=== PATIENT | female | born 1945 | race Hispanic/Latino ===

== ENCOUNTER 2024-09-28 10:41 | Inpatient (IN) | payer OTHER ==
[2024-09-28 11:38] LABS: Absolute Basophils 0.1 K/uL (0-0.5); Absolute Eosinophils 0.3 K/uL (0-0.5); Absolute Lymphocytes (CBC) 1.1 K/uL (0.7-4.9); Absolute Monocytes 0.7 K/uL (0.1-1.3); Absolute Neutrophil 7.3 K/uL (1.8-8.0); Eosinophils % 3.6 % (0-4.4); Hematocrit 34.3 % (36.0-45.0); Lymphocytes % 11.4 % (15.3-44.8); MCH 30.1 pg (27.0-35.0); MCV 93.9 fL (80-100); MPV 10.1 fL (7.6-11.3); Monocytes % 7.7 % (3.3-12.3); Neutrophils % 76.3 % (41.7-73.7); Platelets 172 thou/uL (152-406); RBC Red Blood Cell Count 3.65 M/uL (3.86-4.86); Red Cell Distribution Width 14.8 % (12.1-15.2)
[2024-09-28 11:41] LABS: Protime INR 1.07
--- NOTE | 2024-09-28 11:54 | RAD REPORT ---
EXAM: Chest Single View HISTORY: Cough;COPD COMPARISON: None. FINDINGS: LUNGS/PLEURA: Pulmonary vascular congestion. No consolidative airspace disease. MEDIASTINUM: The mediastinal silhouette is within normal limits. CARDIAC: Cardiomegaly. UPPER ABDOMEN: No significant abnormality. BONES: No acute fracture. LINES/TUBES/OTHER: N/A IMPRESSION: Pulmonary vascular congestion. No eleanor pulmonary edema or consolidative airspace disease.
[2024-09-28 11:55] LABS: Albumin 3.1 g/dL (3.4-5.0); Albumin/Globulin Ratio 0.9 (1.1-1.8); Alkaline Phosphatase 64 U/L (45-117); Anion Gap 5.8 mEq/L (5.0-15.0); BUN Blood Urea Nitrogen 17 mg/dL (7-18); Bicarbonate 28 mEq/L (21-32); Bilirubin Total 0.3 mg/dL (0.2-1.0); Globulin 3.5 g/dL (2.3-3.5); Glomerular Filtration Rate 74 ml/min (=/>90); Glucose Level 172 mg/dL (74-106); Lipase 16 U/L (13-75); Magnesium 2.2 mg/dL (1.6-2.4); NT PRO-BNP 1714 pg/mL (<450); Potassium 3.8 mEq/L (3.5-5.1); Protein, Total 6.6 g/dL (6.4-8.2); Sodium Level 140 mEq/L (136-145); Troponin High Sensitivity 49.9 pg/mL (<58.9)
[2024-09-28 11:56] LABS: ALT/SGPT < 14 U/L (13-56); AST/SGOT < 10 U/L (15-37); Bilirubin Direct < 0.2 mg/dL (0-0.2); Bilirubin Indirect, Calculated 0.1 mg/dL (0.2-0.8)
--- NOTE | 2024-09-28 12:12 | ER ---
Nurse's Notes [facility] Name: Candelaria Chavis Age: 79 yrs Sex: Female : 1945 Arrival Date: 09/28/2024 Time: 10:41 Bed 3 Private MD: Diagnosis: Dyspnea;Hypoxemia;Combined systolic (congestive) and diastolic (congestive) heart failure Presentation: 09/28 10:43 Chief complaint: EMS states: Pt from [facility], staff called EMS for high BP and low ph Spo2, initial BP 200/100s, gave morning BP meds, room air Spo2 88% for EMS, improved to 96% on NC, pt has no complaints, denies SOB. Coronavirus screen: Vaccine status: Patient reports receiving the 2nd dose of the covid vaccine. Ebola Screen: No symptoms or risks identified at this time. Initial Sepsis Screen: Does the patient meet any 2 criteria? No. Patient's initial sepsis screen is negative. Does the patient have a suspected source of infection? No. Patient's initial sepsis screen is negative. Risk Assessment: Do you want to hurt yourself or someone else? Patient reports no desire to harm self or others. Onset of symptoms was September 28, 2024. 10:43 Method Of Arrival: EMS: [facility] ph 10:43 Acuity: LIANE 3 ph Triage Assessment: 10:46 General: Appears in no apparent distress. comfortable, well groomed, Behavior is calm, ph cooperative. Pain: Denies pain. Neuro: Level of Consciousness is awake, alert, obeys commands, Oriented to person, place. Cardiovascular: Capillary refill < 3 seconds in bilateral fingers Patient's skin is warm and dry. Respiratory: Airway is patent Respiratory effort is even, unlabored, Respiratory pattern is regular, symmetrical, Onset: The symptoms/episode began/occurred this morning, the patient has mild shortness of breath. Historical: - Allergies: 10:45 No Known Allergies; ph - PMHx: 10:45 Hypertensive disorder; Dementia; Alzheimer's disease; Depressive disorder; ph - Immunization history:: Adult Immunizations unknown. - Infectious Disease History:: Denies. - Social history:: Smoking status: unknown. Screenin:26 [facility] ED Fall Risk Assessment (Adult) History of falling in the last 3 months, ph including since admission No falls in past 3 months (0 pts) Confusion or Disorientation Yes (5 pts) Intoxicated or Sedated No (0 pts) Impaired Gait No (0 pts) Mobility Assist Device Used Yes (1 pt) Altered Elimination No (0 pt) Score/Fall Risk Level 3 or more points = High Risk Oriented to surroundings, Maintained a safe environment, Hourly rounding (assess needs \T\ fall precautionary measures) done, Used ambulatory aids as needed (educated on \T\ assisted with). Abuse screen: Denies threats or abuse. Denies injuries from another. Nutritional screening: No deficits noted. Tuberculosis screening: No symptoms or risk factors identified. Assessment: 11:00 General: SEE TRIAGE ASSESSMENT. ph 12:00 Reassessment: Patient appears in no apparent distress at this time. Patient and/or ph family updated on plan of care and expected duration. Pain level reassessed. 13:00 Reassessment: Patient appears in no apparent distress at this time. Patient and/or ph family updated on plan of care and expected duration. Pain level reassessed. 13:28 Reassessment: Report faxed to second floor, called charge nurse phone and desk, no ph answer. Vital Signs: 10:43 BP 177 / 62; Pulse 73; Resp 18; Temp 98.6(O); Pulse Ox 88% on R/A; ph 10:47 Pulse Ox 93% on 2 lpm NC; ph 12:00 BP 169 / 76; Pulse 77; Resp 18; Pulse Ox 94% on 2 lpm NC; ph 13:03 BP 179 / 70; Pulse 71; Resp 18; Pulse Ox 95% on 2 lpm NC; ph ED Course: 10:41 Patient arrived in ED. ph 10:42 Cheikh Rodriguez MD is Attending Physician. stephan 10:45 Triage completed. ph 10:47 Arm band placed on Patient placed in an exam room, on a stretcher, on oxygen, on pulse ph oximetry. 11:00 Patient has correct armband on for positive identification. Placed in gown. Bed in low ph position. Call light in reach. Side rails up X2. Client placed on continuous cardiac and pulse oximetry monitoring. NIBP monitoring applied. massage therapist on. 11:10 Initial lab(s) drawn, by me, sent to lab. First set of blood cultures drawn by me. aa5 11:15 Parker, Apurva, RN is Primary Nurse. ph 11:20 Second set of blood cultures drawn by me. aa5 11:24 Inserted saline lock: 20 gauge in right forearm, using aseptic technique. Flushed with aa5 10 mL NS. 11:39 XRAY Chest (1 view) In Process Unspecified. EDMS 12:11 Boni Ulloa MD is Hospitalizing Provider. stephan 12:11 Colton Ulloa MD is Hospitalizing Provider. stephan 12:46 Warm blanket given. Verbal reassurance given. am7 13:28 No provider procedures requiring assistance completed. Patient admitted, IV remains in ph place. Administered Medications: 12:06 Not Given (Duplicate Order): ns 0.9% 1000 ml IV at 125 ml/hr once stephan 12:51 Drug: Potassium PO Effervescent Tablet 25 mEq PO once; dissolve in 4 ounces of water or ph juice Route: PO; 13:29 Follow up: Response: No adverse reaction ph 12:52 Drug: Furosemide IVP 20 mg IVP once; give over 2 minutes Route: IVP; Site: right ph forearm; 13:29 Follow up: Response: No adverse reaction ph Medication: 13:27 VIS not applicable for this client. ph Outcome: 12:11 Decision to Hospitalize by Provider. stephan 14:25 Patient left the ED. iw Signatures: Dispatcher [employer] Cheikh Mckenzie MD MD cha Williams, Irene, RN RN Mikaela Tirado RN RN aaApurva Rod RN RN Shellie Trinidad am7
--- NOTE | 2024-09-28 12:12 | EDPHYS ---
Physician Documentation [facility] Name: Candelaria Chavis Age: 79 yrs Sex: Female : 1945 Arrival Date: 09/28/2024 Time: 10:41 Bed 3 Private MD: ED Physician Cheikh Rodriguez HPI: 09/28 10:57 This 79 yrs old Female presents to ER via EMS with complaints of Breathing stephan Difficulty - low o2. 10:57 The patient has shortness of breath at rest, with light activity. Onset: The stephan symptoms/episode began/occurred 2 day(s) ago. Duration: The symptoms are continuous, and are steadily getting worse. The patient's shortness of breath has no apparent modifying factors, is aggravated by nothing, is alleviated by nothing. Associated signs and symptoms: The patient has no apparent associated signs or symptoms. Severity of symptoms: At their worst the symptoms were moderate in the emergency department the symptoms have resolved. The patient has not experienced similar symptoms in the past. Historical: - Allergies: 10:45 No Known Allergies; ph - PMHx: 10:45 Hypertensive disorder; Dementia; Alzheimer's disease; Depressive disorder; ph - Immunization history:: Adult Immunizations unknown. - Infectious Disease History:: Denies. - Social history:: Smoking status: unknown. ROS: 10:58 Constitutional: Negative for fever, chills, and weight loss, Eyes: Negative for injury, stephan pain, redness, and discharge, ENT: Negative for injury, pain, and discharge, Neck: Negative for injury, pain, and swelling, Cardiovascular: Negative for chest pain, palpitations, and edema, Abdomen/GI: Negative for abdominal pain, nausea, vomiting, diarrhea, and constipation, Back: Negative for injury and pain, : Negative for injury, bleeding, discharge, and swelling, MS/Extremity: Negative for injury and deformity, Skin: Negative for injury, rash, and discoloration, Neuro: Negative for headache, weakness, numbness, tingling, and seizure, Psych: Negative for depression, anxiety, suicide ideation, homicidal ideation, and hallucinations, Allergy/Immunology: Negative for hives, rash, and allergies, Endocrine: Negative for neck swelling, polydipsia, polyuria, polyphagia, and marked weight changes, 10:58 Respiratory: Positive for cough, shortness of breath, Exam: 10:58 Constitutional: This is a well developed, well nourished patient who is awake, alert, stephan and in no acute distress. Head/Face: Normocephalic, atraumatic. Eyes: Pupils equal round and reactive to light, extra-ocular motions intact. Lids and lashes normal. Conjunctiva and sclera are non-icteric and not injected. Cornea within normal limits. Periorbital areas with no swelling, redness, or edema. ENT: Nares patent. No nasal discharge, no septal abnormalities noted. Tympanic membranes are normal and external auditory canals are clear. Oropharynx with no redness, swelling, or masses, exudates, or evidence of obstruction, uvula midline. Mucous membranes moist. Neck: Trachea midline, no thyromegaly or masses palpated, and no cervical lymphadenopathy. Supple, full range of motion without nuchal rigidity, or vertebral point tenderness. No Meningismus. Chest/axilla: Normal chest wall appearance and motion. Nontender with no deformity. No lesions are appreciated. Cardiovascular: Regular rate and rhythm with a normal S1 and S2. No gallops, murmurs, or rubs. Normal PMI, no JVD. No pulse deficits. Respiratory: Lungs have equal breath sounds bilaterally, clear to auscultation and percussion. No rales, rhonchi or wheezes noted. No increased work of breathing, no retractions or nasal flaring. Abdomen/GI: Soft, non-tender, with normal bowel sounds. No distension or tympany. No guarding or rebound. No evidence of tenderness throughout. Back: No spinal tenderness. No costovertebral tenderness. Full range of motion. Female : Normal external genitalia. Skin: Warm, dry with normal turgor. Normal color with no rashes, no lesions, and no evidence of cellulitis. MS/ Extremity: Pulses equal, no cyanosis. Neurovascular intact. Full, normal range of motion., bilateral aka Neuro: Awake and alert, GCS 15, oriented to person, place, time, and situation. Cranial nerves II-XII grossly intact. Motor strength 5/5 in all extremities. Sensory grossly intact. Cerebellar exam normal. Normal gait. Psych: Awake, alert, with orientation to person, place and time. Behavior, mood, and affect are within normal limits. 10:58 Cardiovascular: Exam negative for acute changes, arrhythmia, bradycardia, edema, gallop, JVD, murmur, 10:58 Respiratory: Exam negative for acute changes, 10:58 Musculoskeletal/extremity: DVT Exam: No signs of deep vein thrombosis. no pain, no swelling, no tenderness, negative Homans' sign noted on exam, no appreciated bluish discoloration, no erythema, no increased warmth, Vital Signs: 10:43 BP 177 / 62; Pulse 73; Resp 18; Temp 98.6(O); Pulse Ox 88% on R/A; ph 10:47 Pulse Ox 93% on 2 lpm NC; ph 12:00 BP 169 / 76; Pulse 77; Resp 18; Pulse Ox 94% on 2 lpm NC; ph 13:03 BP 179 / 70; Pulse 71; Resp 18; Pulse Ox 95% on 2 lpm NC; ph MDM: 10:42 Medical Screening Exam initiated stephan 10:59 Differential diagnosis: Anemia asthma, Bronchitis CHF exacerbation, Chronic Obstructive stephan Pulmonary Disease Myocardial Infarction pneumonia, Pneumothorax Psychogenic pulmonary edema, Pulmonary Embolism reactive airway disease, Sepsis Unstable Angina. Antibiotic administration: Not indicated. Immunization status: Pneumococcal vaccine: within last 5 years. Influenza vaccine: within last 5 years. Data reviewed: vital signs, nurses notes, lab test result(s), EKG, radiologic studies, plain films. Consideration of Admission/Observation Escalation of care including admission/observation considered. I considered the following discharge prescriptions or medication management in the emergency department Medications were administered in the Emergency Department. See MAR. Independent interpretation of the following test(s) in the Emergency Department EKG: See my EKG interpretation above. Test considered but Not performed: Ultrasound no 2 d echo. 09/28 10:53 Order name: Basic Metabolic Panel; Complete Time: 12:05 [facility] 09/28 10:53 Order name: CBC with Diff; Complete Time: 12:05 [facility] 09/28 10:53 Order name: LFT's; Complete Time: 12:05 [facility] 09/28 10:53 Order name: Magnesium; Complete Time: 12:05 [facility] 09/28 10:53 Order name: NT PRO-BNP; Complete Time: 12:05 [facility] 09/28 10:53 Order name: PT-INR; Complete Time: 12:05 stephan 09/28 10:53 Order name: Troponin HS; Complete Time: 12:05 [facility] 09/28 10:53 Order name: Lipase; Complete Time: 12:05 [facility] 09/28 10:53 Order name: Blood Culture Adult (2) [facility] 09/28 10:53 Order name: Flu; Complete Time: 12:05 [facility] 09/28 10:53 Order name: Urinalysis w/ reflexes [facility] 09/28 12:49 Order name: Respiratory Syncytial Virus Ag EDMS 09/28 12:49 Order name: SARS-COV-2 Antigen Rapid EDMS 09/28 12:49 Order name: Basic Metabolic Panel EDMS 09/28 12:49 Order name: Basic Metabolic Panel EDMS 09/28 12:49 Order name: Basic Metabolic Panel EDMS 09/28 12:49 Order name: Basic Metabolic Panel EDMS 09/28 12:49 Order name: Basic Metabolic Panel EDMS 09/28 12:49 Order name: Basic Metabolic Panel EDMS 09/28 12:49 Order name: Basic Metabolic Panel EDMS 09/28 12:49 Order name: Basic Metabolic Panel EDMS 09/28 12:49 Order name: CBC with Automated Diff EDMS 09/28 12:49 Order name: CBC with Automated Diff EDMS 09/28 12:49 Order name: CBC with Automated Diff EDMS 09/28 12:49 Order name: CBC with Automated Diff EDMS 09/28 12:49 Order name: CBC with Automated Diff EDMS 09/28 12:49 Order name: CBC with Automated Diff EDMS 09/28 12:49 Order name: CBC with Automated Diff EDMS 09/28 12:49 Order name: CBC with Automated Diff EDMS 09/28 12:49 Order name: Magnesium EDMS 09/28 12:49 Order name: Magnesium EDMS 09/28 12:49 Order name: Magnesium EDMS 09/28 12:49 Order name: Magnesium EDMS 09/28 12:49 Order name: Magnesium EDMS 09/28 12:49 Order name: Magnesium EDMS 09/28 12:49 Order name: Magnesium EDMS 09/28 12:49 Order name: Magnesium EDMS 09/28 12:49 Order name: Phosphorus EDMS 09/28 12:49 Order name: Phosphorus EDMS 09/28 12:49 Order name: Phosphorus EDMS 09/28 12:49 Order name: Phosphorus EDMS 09/28 12:49 Order name: Phosphorus EDMS 09/28 12:49 Order name: Phosphorus EDMS 09/28 12:49 Order name: Phosphorus EDMS 09/28 12:49 Order name: Phosphorus EDMS 09/28 12:49 Order name: Troponin High Sensitivity [facility] 09/28 12:49 Order name: Troponin High Sensitivity EDMS 09/28 12:49 Order name: Troponin High Sensitivity [facility] 09/28 13:08 Order name: Procalcitonin [facility] 09/28 10:53 Order name: XRAY Chest (1 view); Complete Time: 12:05 [facility] 09/28 10:53 Order name: EKG; Complete Time: 10:54 [facility] 09/28 10:53 Order name: Cardiac monitoring; Complete Time: 11:14 [facility] 09/28 10:53 Order name: EKG - Nurse/Tech; Complete Time: 11:14 [facility] 09/28 10:53 Order name: IV Saline Lock; Complete Time: 11:14 [facility] 09/28 10:53 Order name: Labs collected and sent; Complete Time: 11:14 [facility] 09/28 10:53 Order name: O2 Per Protocol; Complete Time: 11:14 [facility] 09/28 10:53 Order name: O2 Sat Monitoring; Complete Time: 11:14 stephan Administered Medications: 12:06 Not Given (Duplicate Order): ns 0.9% 1000 ml IV at 125 ml/hr once stephan 12:51 Drug: Potassium PO Effervescent Tablet 25 mEq PO once; dissolve in 4 ounces of water or ph juice Route: PO; 13:29 Follow up: Response: No adverse reaction ph 12:52 Drug: Furosemide IVP 20 mg IVP once; give over 2 minutes Route: IVP; Site: right ph forearm; 13:29 Follow up: Response: No adverse reaction ph Disposition Summary: 09/28/24 12:11 Hospitalization Ordered Notes: Hospitalization Status: Observation stephan Provider: Colton Ulloa cha Location: Telemetry/MedSurg (observation) stephan Condition: Fair stephan Problem: new stephan Symptoms: have improved stephan Bed/Room Type: Standard stephan Room Assignment: 204(09/28/24 13:17) eb Diagnosis - Dyspnea stephan - Hypoxemia stephan - Combined systolic (congestive) and diastolic (congestive) heart failure stephan Forms: - Medication Reconciliation Form stephan - SBAR form stephan - Leadership Thank You Letter stephan Signatures: Dispatcher [employer] Cheikh Mckenzie MD MD cha Hall, Patricia, RN RN Natalia Allen Corrections: (The following items were deleted from the chart) 10:54 10:54 BASIC METABOLIC PANEL+C.LAB.BRZ ordered. EDMS EDMS 10:54 10:54 CBC+H.LAB.BRZ ordered. EDMS EDMS 10:54 10:54 HEPATIC FUNCTION+C.LAB.BRZ ordered. EDMS EDMS 10:54 10:54 MAGNESIUM+C.LAB.BRZ ordered. EDMS EDMS 10:54 10:54 PROBNP+C.LAB.BRZ ordered. EDMS EDMS 10:54 10:54 PROTIME (+INR)+COAG.LAB.BRZ ordered. EDMS EDMS 10:54 10:54 Troponin High Sensitivity+C.LAB.BRZ ordered. EDMS EDMS 10:54 10:54 LIPASE+C.LAB.BRZ ordered. EDMS EDMS 10:54 10:54 BLOOD CULTURE*+BA.LAB.BRZ ordered. EDMS EDMS 10:54 10:54 Influenza Screen (A \T\ B)+BA.LAB.BRZ ordered. EDMS EDMS 10:54 10:54 Urinalysis+U.LAB.BRZ ordered. EDMS EDMS 12:57 12:11 [facility] eb 13:17 12:57 403 eb eb
[2024-09-28] MEDS ORDERED: FUROSEMIDE 20 MG/ 2ML VIAL ONE (12:25)
[2024-09-28] MEDS ORDERED: POTASSIUM 25 MEQ EFFERV TAB ONE (12:25)
--- NOTE | 2024-09-28 12:56 | P.HP ---
Certification for Inpatient Patient admitted to: Inpatient With expected LOS: <2 Midnights Practitioner: I am a practitioner with admitting privileges, knowledge of patient current condition, hospital course, and medical plan of care. Services: Services provided to patient in accordance with Admission requirements found in Title 42 Section 412.3 of the Code of Federal Regulations Patient History Date of Service: 09/28/24 Reason for admission: Acute hypoxic respiratory failure 2/2 upper respiratoy infection History of Present Illness: Candelaria Chavis is a 79 year old female with Pmhx Alzheimer's, hypertension, dementia, major depressive disorder who presents to the ED with decreased oxygenation 87% on room air requiring 2 L nasal cannula. Candelaria reports congestion and nonproductive cough. She reports her chest feels full and she is trying to cough to clear it. Chest x-ray reports "Pulmonary vascular congestion. No eleanor pulmonary edema or consolidative airspace disease." Laboratory evaluation significant for Serum glucose 172, BNP 1714, H&H 11/34, mild left shift neutrophils 76.3, Flu negative. Candelaria will be admitted to hospitalist service for further evaluation and treatment of acute hypoxic respiratory failure secondary to upper respiratory infection. Allergies No Known Allergies Allergy (Unverified 09/28/24 12:56) Home Medications: Acetaminophen [Tylenol] 325 mg PO Q4HR PRN 09/28/24 Amlodipine [Norvasc*] 10 mg PO BEDTIME 09/28/24 Carvedilol [Coreg] 12.5 mg PO BID 09/28/24 Cholecalciferol (Vitamin D3) [Dialyvite Vitamin D3 Max] 50,000 unit PO EVERY 7TH DAY 09/28/24 Divalproex Sodium [Depakote Sprinkle] 125 mg PO BID 09/28/24 Hydralazine HCl 50 mg PO Q8HR 09/28/24 Loperamide [Imodium] 2 mg PO Q8HR PRN 09/28/24 Losartan Potassium 100 mg PO DAILY 09/28/24 Mag Hydrox/Al Hydrox/Simeth [Maalox Maximum Strength Susp] 400 mg PO Q4HR PRN 09/28/24 Mag Hydroxide 8% [Milk Of Magnesia] 30 ml PO DAILY PRN 09/28/24 Memantine HCl 5 mg PO BID 09/28/24 Mirtazapine 37.5 mg PO BEDTIME 09/28/24 Olanzapine [Zyprexa] 5 mg PO BEDTIME 09/28/24 cloNIDine HCL [Clonidine HCl] 0.1 mg PO Q6HR 09/28/24 - Past Medical/Surgical History -: Alzheimer's -: Major depressive disorder -: Hypertension -: Dementia Past Surgical History: Unable to obtain - Social History Smoking Status: Never smoker Alcohol use: No CD- Drugs: No Review of Systems Respiratory: Cough, Shortness of Breath Physical Examination - Physical Exam General: Alert, In no apparent distress, Oriented x3 HEENT: Atraumatic, Normocephalic Neck: Supple, 2+ carotid pulse no bruit Respiratory: Clear to auscultation bilaterally, Normal air movement Cardiovascular: Normal pulses, Regular rate/rhythm, Normal S1 S2 Gastrointestinal: Normal bowel sounds, Soft and benign, Non-distended Musculoskeletal: No clubbing Integumentary: No rashes Neurological: Normal speech, Normal tone - Studies Laboratory Data (last 24 hrs) 09/28/24 09/28/24 09/28/24 11:10 11:10 11:10 WBC 9.60 Hgb 11.0 L Hct 34.3 L Plt Count 172 PT 12.0 INR 1.07 Sodium 140 Potassium 3.8 BUN 17 Creatinine 0.81 Glucose 172 H Magnesium 2.2 Total Bilirubin 0.3 AST < 10 L ALT < 14 Alkaline Phosphatase 64 Lipase 16 Microbiology Data (last 24 hrs): 09/28/24 11:25 Nasopharnyx Influenza Type A Antigen Screen - Final 09/28/24 11:25 Nasopharnyx Influenza Type B Antigen Screen - Final Assessment and Plan - Plan Assessment and plan Acute hypoxic respiratory failure secondary to CHF cough and congestion suspect URI -Flu, COVID, and RSV negative -Chest x-ray report "Pulmonary vascular congestion. No eleanor pulmonary edema or consolidative airspace disease." -DuoNebs -Oxygen protocol, On 2 L nasal cannula will attempt to wean -Incentive spirometer -Robitussin -Lasix x1 given in the ED -Lasix 20 mg in the AM -strict I and O, daily weight -Supportive care Alzheimer's with dementia Major depressive disorder Hypertension -Continue home medications when appropriate DVT PPx Lovenox Full code LOS 2-3 days Discharge Plan: Alf Plan to discharge in: 48 Hours - Advance Directives Does patient have a Living Will: No Does patient have a Durable POA for Healthcare: No
[2024-09-28] MEDS: ALBUTEROL 2.5 MG/3 ML NEB SOL NEB SCH (13:00)
[2024-09-28] MEDS: IPRATROPIUM BROM 0.5MG/2.5ML NEB SCH (13:00)
[2024-09-28 16:18] LABS: SARS-CoV-2 Antigen CONTROL BLUE LINE VIS/BG OK; SARS-CoV-2 Antigen Rapid Res Negative (Negative)
[2024-09-28] MEDS: carvediloL 12.5 MG TAB PO SCH (16:40)
[2024-09-28] MEDS: HYDRALAZINE HCL 25 MG TABLET PO SCH (16:40)
[2024-09-28] MEDS: cloNIDine HCL 0.1 MG TAB PO SCH (16:40)
[2024-09-28] MEDS: MEMANTINE HCL 10 MG TABLET PO SCH (21:19)
[2024-09-28] MEDS: AMLODIPINE 10 MG TAB PO SCH (21:19)
[2024-09-28] MEDS: OLANZapine 2.5 MG TAB PO SCH (21:20)
[2024-09-28] MEDS: MIRTAZAPINE 15 MG TAB PO SCH (21:20)
[2024-09-28] MEDS: DIVALPROEX NA 125 MG CAP PO SCH (21:20)
[2024-09-29 07:34] LABS: Absolute Eosinophils 0.3 K/uL (0-0.5); Absolute Lymphocytes (CBC) 1.2 K/uL (0.7-4.9); Absolute Monocytes 0.7 K/uL (0.1-1.3); Absolute Neutrophil 6.6 K/uL (1.8-8.0); Basophils % 0.5 % (0-1.3); Eosinophils % 3.8 % (0-4.4); Hematocrit 31.6 % (36.0-45.0); Hemoglobin 10.6 g/dL (12.0-15.0); Lymphocytes % 13.6 % (15.3-44.8); MCH 31.1 pg (27.0-35.0); MCHC 33.5 g/dL (32.0-36.0); MCV 92.7 fL (80-100); MPV 9.8 fL (7.6-11.3); Monocytes % 8.4 % (3.3-12.3); Neutrophils % 73.7 % (41.7-73.7); Nucleated Red Blood Cells % 0.1 % (0-0); Platelets 172 thou/uL (152-406); Red Cell Distribution Width 14.6 % (12.1-15.2)
[2024-09-29 07:41] LABS: Anion Gap 9.8 mEq/L (5.0-15.0); Phosphorus 3.7 mg/dL (2.5-4.9); Potassium 3.8 mEq/L (3.5-5.1)
[2024-09-29] MEDS: LOSARTAN POTASSIUM 50 MG TABLET PO SCH (09:34)
[2024-09-29] MEDS: ENOXAPARIN 40 MG/0.4 ML SQ SCH (09:34)
[2024-09-29] MEDS: FUROSEMIDE 20 MG/ 2ML VIAL IV SCH (09:35)
--- NOTE | 2024-09-29 13:06 | EKG ---
Test Date: 2024-09-28 Test Time: 11:11:44 Postal Delivery Officer: AM MEASUREMENT RESULTS: Intervals: Rate: 68 NV: 174 QRSD: 84 QT: 412 QTc: 438 Mentcle: P: 69 NV: 174 QRS: 70 T: 57 INTERPRETIVE STATEMENTS: Normal sinus rhythm Anteroseptal infarct, age undetermined Abnormal ECG No previous ECG available for comparison Electronically Signed On 09-29-24 13:04:12 COUPON COLLECTION CLERK by Ari Aparicio
[2024-09-29] MEDS: POTASSIUM 25 MEQ EFFERV TAB PO ONE (13:42)
--- NOTE | 2024-09-29 14:50 | P.PN ---
Date of Service: 09/29/24 Subjective Awake and feeling well, reports breathing easier now Treated with Lasix and tolerated well. Urine output not recorded. Will evaluate home O2 at rest. Physical therapy consulted ROS 10 point ROS as noted above, otherwise negative Physical Exam General: Alert and Oriented x3, NAD HEENT: Atraumatic, Normocephalic Neck: Supple, 2+ carotid pulse no bruit Respiratory: Clear to auscultation bilaterally, Normal air movement, on 2 LNC Cardiovascular: Normal pulses, RRR, Normal S1 S2 Gastrointestinal: Normal bowel sounds, Soft on palpation, ND/NT Musculoskeletal: No clubbing Integumentary: No rashes Neurological: Normal speech, Normal tone Vitals Reviewed Problem list Acute hypoxic respiratory failure secondary to CHF cough and congestion suspect URI Alzheimer's with dementia Major depressive disorder Hypertension Assessment and Plan Acute hypoxic respiratory failure secondary to CHF cough and congestion suspect URI -Flu, COVID, and RSV negative -Chest x-ray report "Pulmonary vascular congestion. No eleanor pulmonary edema or consolidative airspace disease." -DuoNebs -Oxygen protocol, On 2 L nasal cannula will attempt to wean -Home O2 testing today -Incentive spirometer, pulling 750 -Robitussin -Lasix x1 given in the ED -Lasix 20 mg in the AM -strict I and O, daily weight -Supportive care -Echo in the a.m. Alzheimer's with dementia Major depressive disorder Hypertension -Continue home medications when appropriate -Physical therapy DVT PPx Lovenox Full code LOS 2-3 days Discharge Plan: [facility] Plan to discharge in: 48 Hours
[2024-09-29 15:27] LABS: Specific Gravity 1.016 (1.005-1.030); Urine Bacteria <20 /HPF (<20); Urine Bilirubin NEGATIVE (Negative); Urine Blood Negative (Negative); Urine Clarity Extremely Turbid (Clear); Urine Color Yellow (Yellow); Urine Crystals Unidentified Few /HPF (None Seen); Urine Culture Reflex Order REFLEXED; Urine Glucose NEGATIVE (Negative); Urine Ketones NEGATIVE (Negative); Urine Microscopic Reflex YN ORDER UMIC; Urine Mucus 1+ /HPF (None Seen); Urine Nitrite NEGATIVE (Negative); Urine Protein NEGATIVE (Negative); Urine Urobilinogen Normal (Normal); Urine WBC Clump Rare /HPF (None Seen); Urine Yeast (Budding) Trace /HPF (None Seen); Urine pH 5.5 (5.0-7.0)
[2024-09-30 04:55] LABS: Absolute Eosinophils 0.4 K/uL (0-0.5); Absolute Lymphocytes (CBC) 1.7 K/uL (0.7-4.9); Absolute Neutrophil 3.5 K/uL (1.8-8.0); Basophils % 0.7 % (0-1.3); Hematocrit 30.2 % (36.0-45.0); Hemoglobin 9.7 g/dL (12.0-15.0); Lymphocytes % 25.5 % (15.3-44.8); MCH 29.9 pg (27.0-35.0); MCHC 32.2 g/dL (32.0-36.0); MCV 92.9 fL (80-100); MPV 10.1 fL (7.6-11.3); Monocytes % 14.5 % (3.3-12.3); Neutrophils % 53.3 % (41.7-73.7); Nucleated Red Blood Cells % 0.2 % (0-0); Platelets 152 thou/uL (152-406); RBC Red Blood Cell Count 3.25 M/uL (3.86-4.86); Red Cell Distribution Width 14.5 % (12.1-15.2)
[2024-09-30 05:03] LABS: Magnesium 2.2 mg/dL (1.6-2.4); Phosphorus 4.5 mg/dL (2.5-4.9)
[2024-09-30] MEDS: GUAIFENESIN/CODEINE 5ML UCUP PO PRN (05:27)
--- NOTE | 2024-09-30 13:07 | ECHO ---
HEIGHT: 5 ft 4 in WEIGHT: 156 lb 0 oz DATE OF STUDY: 09/30/[address]: Alena Hampton NP 2-DIMENSIONAL: YES M.MODE: YES DOPPLER: YES COLOR FLOW: YES TDS: NO PORTABLE: YES DEFINITY: NO BUBBLE STUDY: NO DIAGNOSIS: CONGESTIVE HEART FAILURE DIURESING CARDIAC HISTORY: CATHERIZATION: NO SURGERY: NO PROSTHETIC VALVE: NO PACEMAKER: NO MEASUREMENTS (cm) DIASTOLIC (NORMALS) SYSTOLIC (NORMALS) IVSd 1.1 (0.6-1.2) LA Diam 3.2 (1.9-4.0) LVEF 55-60% LVIDd 4.4 (3.5-5.7) LVIDs 3.3 (2.0-3.5) %FS 26% LVPWd 1.3 (0.6-1.2) Ao Diam 2.4 (2.0-3.7) 2 DIMENSIONAL ASSESSMENT: RIGHT ATRIUM: NORMAL LEFT ATRIUM: SEVERELY DILATED RIGHT VENTRICLE: NORMAL LEFT VENTRICLE: NORMAL TRICUSPID VALVE: MILD TRICUSPID REGURGITATION MITRAL VALVE: MODERATE GASTON ANNULAR CALCIFICATION PULMONIC VALVE: NORMAL AORTIC VALVE: TRACE AORTIC REGURGITATION PERICARDIAL EFFUSION: NONE AORTIC ROOT: NORMAL LEFT VENTRICULAR WALL MOTION: NORMAL. DOPPLER/COLOR FLOW: GRADE II DIASTOLIC DYSFUNCTION. COMMENTS: 1. NORMAL LEFT VENTRICULAR SYSTOLIC FUNCTION. LEFT VENTRICULAR EJECTION FRACTION 55-60%. NORMAL WALL MOTION. 2. GRADE II DIASTOLIC DYSFUNCTION. 3. NORMAL FILLING PRESSURE. RIGHT ATRIAL PRESSURE 0-5 mmHg. TECHNOLOGIST: CLARENCE GARZA
[2024-09-30] MEDS: GUAIFENESIN 600 MG SA TAB PO SCH (13:57)
--- NOTE | 2024-09-30 15:33 | P.PN ---
Date of Service: 09/30/24 Subjective Awake and ambulating independently Walking test she saturated at 90% on RA, will continue incentive spirometer ROS 10 point ROS as noted above, otherwise negative Physical Exam General: AAOx3, NAD HEENT: Atraumatic, Normocephalic Neck: Supple, 2+ carotid pulse no bruit Respiratory: Clear to auscultation bilaterally, Normal air movement, on RA Cardiovascular: Normal pulses, Regular rate and rhythm, Normal S1 S2 Gastrointestinal: Normal bowel sounds, Soft on palpation, ND/NT Musculoskeletal: No clubbing Integumentary: No rashes Neurological: Normal speech, Normal tone Vitals Reviewed Problem list Acute hypoxic respiratory failure secondary to CHF cough and congestion suspect URI Alzheimer's with dementia Major depressive disorder Hypertension Assessment and Plan Acute hypoxic respiratory failure secondary to CHF cough and congestion suspect URI -Flu, COVID, and RSV negative -Chest x-ray report "Pulmonary vascular congestion. No eleanor pulmonary edema or consolidative airspace disease." -DuoNebs -Oxygen protocol, On 2 L nasal cannula will attempt to wean -Home O2 testing today -Incentive spirometer, pulling 750 -Robitussin, mucinex -Lasix x1 given in the ED -Lasix 20 mg in the AM -strict I and O, daily weight -Supportive care -Echo with EF of 55-60%, Moderate mitral annular calcification, Mild tricuspid reguritation Alzheimer's with dementia Major depressive disorder Hypertension -Continue home medications when appropriate -Physical therapy DVT PPx Lovenox Full code LOS 2-3 days Discharge Plan: Halfway Plan to discharge in: 48 Hours
[2024-09-30] MEDS: carvediloL 3.125 MG TAB PO ONE (17:59)
[2024-10-01] MEDS: ACETAMINOPHEN 325 MG TABLET PO PRN (00:29)
[2024-10-01 06:28] LABS: Absolute Eosinophils 0.3 K/uL (0-0.5); Absolute Lymphocytes (CBC) 1.3 K/uL (0.7-4.9); Absolute Monocytes 0.6 K/uL (0.1-1.3); Absolute Neutrophil 2.2 K/uL (1.8-8.0); Basophils % 0.6 % (0-1.3); Eosinophils % 7.1 % (0-4.4); Hematocrit 29.7 % (36.0-45.0); Hemoglobin 9.9 g/dL (12.0-15.0); Lymphocytes % 29.6 % (15.3-44.8); MCH 30.9 pg (27.0-35.0); MCHC 33.4 g/dL (32.0-36.0); MCV 92.4 fL (80-100); MPV 9.6 fL (7.6-11.3); Monocytes % 14.1 % (3.3-12.3); Neutrophils % 48.6 % (41.7-73.7); Platelets 180 thou/uL (152-406); RBC Red Blood Cell Count 3.21 M/uL (3.86-4.86); Red Cell Distribution Width 14.4 % (12.1-15.2)
[2024-10-01 06:47] LABS: Anion Gap 6.7 mEq/L (5.0-15.0); Magnesium 2.3 mg/dL (1.6-2.4); Phosphorus 4.3 mg/dL (2.5-4.9); Potassium 3.7 mEq/L (3.5-5.1)
[2024-10-01] MEDS: POTASSIUM CL SA 10 MEQ TAB PO ONE (08:14)
--- NOTE | 2024-10-01 10:45 | P.DS ---
Admission Date: 09/28/24 Discharge Date: 10/01/24 Disposition: TRANSFER TO SENIOR CARE Discharge Condition: GOOD Reason for Admission: Acute hypoxic respiratory failure 2/2 upper respiratoy infection Brief History of Present Illness: Diangosis Acute hypoxic respiratory failure secondary to CHF cough and congestion suspect URI Alzheimer's with dementia Major depressive disorder Hypertension HPI 12/ Candelaria Chavis is a 79 year old female with Pmhx Alzheimer's, hypertension, dementia, major depressive disorder who presents to the ED with decreased oxygenation 87% on room air requiring 2 L nasal cannula. Candelaria reports congestion and nonproductive cough. She reports her chest feels full and she is trying to cough to clear it. Chest x-ray reports "Pulmonary vascular congestion. No eleanor pulmonary edema or consolidative airspace disease." Laboratory evaluation significant for Serum glucose 172, BNP 1714, H&H 11/34, mild left shift neutrophils 76.3, Flu negative. Candelaria will be admitted to hospitalist service for further evaluation and treatment of acute hypoxic respiratory failure secondary to upper respiratory infection. Hospital Course: Candelaria Chavis is a pleasant 79 year old female with a past medical history significant for Alzheimer's, hypertension, dementia, major depressive disorder who was admitted to the [facility] on 09/28/24 for acute hypoxic respiratory failure secondary to upper respiratory infection and CHF exacerbation. Candelaria tolerated lasix, robitussin, nebulizer treatments, incentive spirometer, and mucinex as well as started on 2 LNC. She reported feeling better the next morning and was successfully weaned off of supplemental oxygen. She remained one more night for further evaluation for the need of oxygen. On 10/01/24, Candelaria was seen on morning rounds, denies fever, chills, chest pain, and SOB. She was deemed medically stable for discharge. Candelaria was discharged with instructions to schedule follow-up appointments with PCP. Candelaria was provided prescriptions for azythromycin, lasix, and potassium. Physical Exam General: AAOx2, NAD, Dementia HEENT: Atraumatic, Normocephalic Neck: Supple, 2+ carotid pulse no bruit Respiratory: Clear BBS, Nonlabored breathing, on RA Cardiovascular: Normal pulses, RRR, Normal S1 S2 Gastrointestinal: Normal bowel sounds, Soft on palpation, ND/NT Musculoskeletal: No clubbing Integumentary: No rashes Neurological: Normal speech, Normal tone Vital Signs/Physical Exam: Temp Pulse Resp BP Pulse Ox 97.9 F 72 16 156/70 H 93 10/01/24 08:00 10/01/24 08:15 10/01/24 08:00 10/01/24 08:00 10/01/24 08:00 Laboratory Data at Discharge: WBC 4.50 thou/uL (4.3-10.9) 10/01/24 06:06 Hgb 9.9 g/dL (12.0-15.0) L 10/01/24 06:06 Hct 29.7 % (36.0-45.0) L 10/01/24 06:06 Plt Count 180 thou/uL (152-406) 10/01/24 06:06 PT 12.0 SECONDS (9.4-12.5) 09/28/24 11:10 INR 1.07 09/28/24 11:10 Sodium 138 mEq/L (136-145) 10/01/24 06:06 Potassium 3.7 mEq/L (3.5-5.1) 10/01/24 06:06 BUN 28 mg/dL (7-18) H 10/01/24 06:06 Creatinine 0.98 mg/dL (0.55-1.02) 10/01/24 06:06 Glucose 116 mg/dL (74-106) H 10/01/24 06:06 Phosphorus 4.3 mg/dL (2.5-4.9) 10/01/24 06:06 Magnesium 2.3 mg/dL (1.6-2.4) 10/01/24 06:06 Total Bilirubin 0.3 mg/dL (0.2-1.0) 09/28/24 11:10 AST < 10 U/L (15-37) L 09/28/24 11:10 ALT < 14 U/L (13-56) 09/28/24 11:10 Alkaline Phosphatase 64 U/L (45-117) 09/28/24 11:10 Lipase 16 U/L (13-75) 09/28/24 11:10 Home Medications: Acetaminophen [Tylenol] 325 mg PO Q4HR PRN 09/28/24 Amlodipine [Norvasc*] 10 mg PO BEDTIME 09/28/24 Carvedilol [Coreg] 12.5 mg PO BID 09/28/24 Cholecalciferol (Vitamin D3) [Dialyvite Vitamin D3 Max] 50,000 unit PO EVERY 7TH DAY 09/28/24 Divalproex Sodium [Depakote Sprinkle] 125 mg PO BID 09/28/24 Hydralazine HCl 50 mg PO Q8HR 09/28/24 Loperamide [Imodium*] 2 mg PO Q8HR PRN 09/28/24 Losartan Potassium 100 mg PO DAILY 09/28/24 Mag Hydrox/Al Hydrox/Simeth [Maalox Maximum Strength Susp] 400 mg PO Q4HR PRN 09/28/24 Mag Hydroxide 8% [Milk Of Magnesia*] 30 ml PO DAILY PRN 09/28/24 Memantine HCl 5 mg PO BID 09/28/24 Mirtazapine 37.5 mg PO BEDTIME 09/28/24 Olanzapine [Zyprexa] 5 mg PO BEDTIME 09/28/24 cloNIDine HCL [Clonidine HCl] 0.1 mg PO Q6HR 09/28/24 Azithromycin Tab [Zithromax*] 250 mg PO ZPAK 5 Days #1 roxanne 10/01/24 Furosemide [Lasix] 10 mg PO DAILY 6 Days #3 tab 10/01/24 Potassium Oral Tab [Klor-Con 10 mEq Tab*] 10 meq PO DAILY 6 Days #6 tab 10/01/24 New Medications: Potassium Oral Tab [Klor-Con 10 mEq Tab*] 10 meq PO DAILY 6 Days #6 tab Furosemide [Lasix] 10 mg PO DAILY 6 Days #3 tab Azithromycin Tab [Zithromax*] 250 mg PO ZPAK 5 Days #1 roxanne Physician Discharge Instructions: PROBLEM: Hypoxia, Respiratory distress GOAL: Clear understanding of disease process INSTRUCTIONS: Diet: Heart Healthy Activity: fall precautions 1. Please call and schedule a follow-up appointment with your PCP in 3-5 days - Please follow-up with your PCP for medication refills/adjustments 2. Continue regular diet 3. activity restrictions fall precautions 4. Return to the ED if symptoms worsen New medications Lasix 10 mg daily x 6 days Potassium 10 mg daily x 6 days Z-pack as directed Caution using the blood pressure medications. Followup: NONE,NONE [Primary Care Provider] -
[2024-10-01 13:52] VITALS: BMI 26.5
[2024-10-01 13:53] VITALS: O2SAT 92
[2024-10-01 16:13] VITALS: BP 170/78; TEMP 97.5
== END 2024-10-01 19:23 | DRG 291 ==
LOC: ER 10:41 → ERHOLD 12:40 → 2ND 13:25
PROVIDERS: ADMIT Hospitalist; ATTEND Internal Medicine
DX: I11.0 Hypertensive heart disease with heart failure (principal); I50.43 Acute on chronic combined systolic (congestive) and diastolic (congestive) heart failure; J96.01 Acute respiratory failure with hypoxia; F02.83 Dementia in other diseases classified elsewhere, unspecified severity, with mood disturbance; G30.9 Alzheimer's disease, unspecified; Z11.52 Encounter for screening for COVID-19; Z79.899 Other long term (current) drug therapy
CPT/HCPCS: 36415; 71045; 80048; 80076; 80164; 81001; 83690; 83735; 83880; 84100; 84145; 84484; 85025; 85610; 87040; 87077; 87086; 87088; 87186; 87804; 87807; 87811; 93005; 93306; 94010; 94640; 96374; 97116; 97161; 99285; J1650; J1940; J7613; J7644

== ENCOUNTER 2024-12-20 15:23 | Observation (INO) | payer OTHER ==
[2024-12-20 16:03] LABS: Absolute Eosinophils 0.2 K/uL (0-0.5); Absolute Lymphocytes (CBC) 1.4 K/uL (0.7-4.9); Absolute Monocytes 0.5 K/uL (0.1-1.3); Absolute Neutrophil 2.6 K/uL (1.8-8.0); Basophils % 0.9 % (0-1.3); Eosinophils % 3.4 % (0-4.4); Hematocrit 31.2 % (36.0-45.0); Hemoglobin 10.7 g/dL (12.0-15.0); Lymphocytes % 29.4 % (15.3-44.8); MCHC 34.2 g/dL (32.0-36.0); MCV 90.7 fL (80-100); MPV 9.3 fL (7.6-11.3); Monocytes % 10.9 % (3.3-12.3); Neutrophils % 55.4 % (41.7-73.7); Platelets 198 thou/uL (152-406); RBC Red Blood Cell Count 3.44 M/uL (3.86-4.86); Red Cell Distribution Width 14.5 % (12.1-15.2)
[2024-12-20 16:22] LABS: Albumin/Globulin Ratio 0.9 (1.1-1.8); Alkaline Phosphatase 47 U/L (45-117); Anion Gap 9.9 mEq/L (5.0-15.0); BUN Blood Urea Nitrogen 13 mg/dL (7-18); Bicarbonate 28 mEq/L (21-32); Bilirubin Total 0.2 mg/dL (0.2-1.0); Globulin 3.2 g/dL (2.3-3.5); Glomerular Filtration Rate 65 ml/min (=/>90); Glucose Level 130 mg/dL (74-106); NT PRO-BNP 1322 pg/mL (<450); Potassium 3.9 mEq/L (3.5-5.1); Protein, Total 6.2 g/dL (6.4-8.2); Sodium Level 140 mEq/L (136-145); Troponin High Sensitivity 43.1 pg/mL (<58.9)
[2024-12-20 16:27] LABS: ALT/SGPT < 14 U/L (13-56); AST/SGOT < 10 U/L (15-37); Bilirubin Direct < 0.2 mg/dL (0-0.2)
--- NOTE | 2024-12-20 16:47 | EDPHYS ---
Physician Documentation [facility] Name: Candelaria Chavis Age: 79 yrs Sex: Female : 1945 Arrival Date: 12/20/2024 Time: 15:23 Bed 20 Private MD: ED Physician Boni Ulloa HPI: 12/20 15:46 This 79 yrs old Female presents to ER via EMS with complaints of Chest Pain > rn 31 y/o. 15:46 Patient brought from detention for complaint of chest pain. Per report patient was rn having chest pain, given aspirin and nitro with resolution of pain. Patient currently asymptomatic. Patient has dementia and states she does not know why she is here. Denies any chest pain or shortness of breath at this time. No abdominal pain. Historical: - Allergies: 15:35 No Known Allergies; me1 - PMHx: 15:35 Alzheimer's disease; Dementia; depressive disorder; Hypertensive disorder; me1 - Immunization history:: Adult Immunizations up to date. - Infectious Disease History:: Denies. - Social history:: Smoking status: Patient denies any tobacco usage or history of. - Family history:: not pertinent. - Hospitalizations: : No recent hospitalization is reported. ROS: 15:46 Constitutional: Negative for fever, chills, and weight loss, Cardiovascular: Negative rn for chest pain, palpitations, and edema, Respiratory: Negative for shortness of breath, cough, wheezing, and pleuritic chest pain, Abdomen/GI: Negative for abdominal pain, nausea, vomiting, diarrhea, and constipation, MS/Extremity: Negative for injury and deformity, Skin: Negative for injury, rash, and discoloration, Neuro: Negative for headache, weakness, numbness, tingling, and seizure, Exam: 15:46 Constitutional: This is a well developed, well nourished patient who is awake, alert, rn and in no acute distress. Cardiovascular: Bradycardic, regular. No pulse deficits. Respiratory: No increased work of breathing, no retractions or nasal flaring. Abdomen/GI: Soft, non-tender MS/ Extremity: Pulses equal, no cyanosis. Neurovascular intact. Full, normal range of motion. Equal circumference. Neuro: Awake and alert, GCS 15 Vital Signs: 15:32 BP 168 / 42; Pulse 56; Resp 16; Temp 98.3; Pulse Ox 100% ; Weight 68.04 kg; Height 5 me1 ft. 4 in. ; Pain 0/10; 16:00 BP 154 / 52; Pulse 54; Resp 17; Pulse Ox 98% ; me1 17:00 BP 149 / 48; Pulse 54; Resp 18; Pulse Ox 98% ; me1 17:41 BP 152 / 40; Pulse 58; Resp 20; Temp 98.3; Pulse Ox 98% ; me1 15:32 Body Mass Index 25.75 (68.04 kg, 162.56 cm) me1 15:32 Pain Scale: Adult me1 MDM: 15:29 Medical Screening Exam initiated rn 16:45 Differential diagnosis: acute myocardial infarction, acute pericarditis, anxiety, rn coronary artery disease pleurisy, pneumothorax. HEART Score: History: Moderately Suspicious (1), ECG: Normal (0), Age: > or = 65 years (2), Risk Factors: 1 or 2 risk factors (1), Troponin: < or = 1 x Normal Limit (0), Total Score = 4. The patient was not given aspirin in the Emergency Department. Administered by EMS. Data reviewed: vital signs, nurses notes, lab test result(s), EKG, and as a result, I will admit patient. Counseling: I had a detailed discussion with the patient and/or guardian regarding the historical points, exam findings, and any diagnostic results supporting the discharge/admit diagnosis, lab results, the need for further work-up and treatment in the hospital. 12/20 15:35 Order name: Basic Metabolic Panel; Complete Time: 16:28 rn 12/20 15:35 Order name: CBC with Diff; Complete Time: 16:28 rn 12/20 15:35 Order name: LFT's; Complete Time: 16:28 rn 12/20 15:35 Order name: NT PRO-BNP; Complete Time: 16:28 rn 12/20 15:35 Order name: Troponin HS; Complete Time: 16:28 rn 12/20 17:31 Order name: Lipid Profile [facility] 12/20 17:31 Order name: Lipid Profile [facility] 12/20 17:31 Order name: Troponin High Sensitivity [facility] 12/20 17:31 Order name: Troponin High Sensitivity [facility] 12/20 17:31 Order name: Troponin High Sensitivity [facility] 12/20 17:31 Order name: Troponin High Sensitivity [facility] 12/20 17:31 Order name: Troponin High Sensitivity [facility] 12/20 15:35 Order name: XRAY Chest (1 view) rn 12/20 15:35 Order name: Cardiac monitoring; Complete Time: 16:10 rn 12/20 15:35 Order name: EKG - Nurse/Tech; Complete Time: 16:10 rn 12/20 15:35 Order name: IV Saline Lock; Complete Time: 15:52 rn 12/20 15:35 Order name: Labs collected and sent; Complete Time: 16:10 rn 12/20 15:35 Order name: O2 Per Protocol; Complete Time: 15:52 rn 12/20 15:35 Order name: O2 Sat Monitoring; Complete Time: 15:52 rn Administered Medications: No medications were administered Disposition Summary: 12/20/24 16:46 Hospitalization Ordered Notes: Hospitalization Status: Observation rn Provider: Lemuel Arevalo rn Location: Telemetry/MedSurg (observation) rn Condition: Stable rn Problem: new rn Symptoms: have improved rn Bed/Room Type: Standard rn Room Assignment: 214(12/20/24 17:35) ty Diagnosis - Chest pain, unspecified rn Forms: - Medication Reconciliation Form rn - SBAR form rn - Leadership Thank You Letter rn Signatures: Dispatcher [employer] EDBoni Jackson MD MD rn Eddleman, Michelle, RN RN me1 Dipak Carr Corrections: (The following items were deleted from the chart) 15:35 15:35 BASIC METABOLIC PANEL+C.LAB.BRZ ordered. EDMS EDMS 15:35 15:35 CBC+H.LAB.BRZ ordered. EDMS EDMS 15:35 15:35 HEPATIC FUNCTION+C.LAB.BRZ ordered. EDMS EDMS 15:35 15:35 PROBNP+C.LAB.BRZ ordered. EDMS EDMS 15:35 15:35 Troponin High Sensitivity+C.LAB.BRZ ordered. EDMS EDMS 15:35 15:35 Chest Single View+RAD.RAD.BRZ ordered. EDMS EDMS 17:35 16:46 rn ty
--- NOTE | 2024-12-20 16:47 | ER ---
Nurse's Notes [facility] Name: Candelaria Chavis Age: 79 yrs Sex: Female : 1945 Arrival Date: 12/20/2024 Time: 15:23 Bed 20 Private MD: Diagnosis: Chest pain, unspecified Presentation: 12/20 15:32 Chief complaint: EMS states: toned out to [facility] for chest pain. nm1 [facility] gave ASA 162mg PO and nitro 0.4 mg x3 and chest pain has resolved. 20g RFA. BGL 150. Coronavirus screen: Vaccine status: Patient reports receiving the 2nd dose of the covid vaccine. Ebola Screen: No symptoms or risks identified at this time. Initial Sepsis Screen: Does the patient meet any 2 criteria? No. Patient's initial sepsis screen is negative. Does the patient have a suspected source of infection? No. Patient's initial sepsis screen is negative. Risk Assessment: Do you want to hurt yourself or someone else? Patient reports no desire to harm self or others. Onset of symptoms was December 20, 2024 at 10:30. 15:32 Method Of Arrival: [place] [facility] [place] Acuity: LIANE 3 nm1 Triage Assessment: 15:40 General: Appears in no apparent distress. well groomed, well developed, well nourished, me1 Behavior is calm, cooperative, appropriate for age. Pain: Denies pain. EENT: No signs and/or symptoms were reported regarding the EENT system. Neuro: Level of Consciousness is awake, alert, obeys commands, Oriented to person, situation, Appropriate for age. Cardiovascular: Patient's skin is warm and dry. Cardiovascular: Reports chest pain, chest pain earlier that resolved with nitro. Respiratory: GI: No signs and/or symptoms were reported involving the gastrointestinal system. : No signs and/or symptoms were reported regarding the genitourinary system. Derm: Skin is intact, is healthy with good turgor, Skin is pink, warm \T\ dry. Musculoskeletal: No signs and/or symptoms reported regarding the musculoskeletal system. Historical: - Allergies: 15:35 No Known Allergies; me1 - PMHx: 15:35 Alzheimer's disease; Dementia; depressive disorder; Hypertensive disorder; me1 - Immunization history:: Adult Immunizations up to date. - Infectious Disease History:: Denies. - Social history:: Smoking status: Patient denies any tobacco usage or history of. - Family history:: not pertinent. - Hospitalizations: : No recent hospitalization is reported. Screenin:43 [facility] ED Fall Risk Assessment (Adult) History of falling in the last 3 months, me1 including since admission No falls in past 3 months (0 pts) Confusion or Disorientation Yes (5 pts) Intoxicated or Sedated No (0 pts) Impaired Gait Yes (1 pt) Mobility Assist Device Used Yes (1 pt) Altered Elimination Yes (1 pt) Score/Fall Risk Level 0 - 2 = Low Risk Maintained a safe environment, Provided non-skid footwear, Hourly rounding (assess needs \T\ fall precautionary measures) done. Abuse screen: Denies threats or abuse. Nutritional screening: No deficits noted. Tuberculosis screening: No symptoms or risk factors identified. Assessment: 15:43 General: See triage assessment. Pain: Denies pain. me1 Vital Signs: 15:32 BP 168 / 42; Pulse 56; Resp 16; Temp 98.3; Pulse Ox 100% ; Weight 68.04 kg; Height 5 me1 ft. 4 in. ; Pain 0/10; 16:00 BP 154 / 52; Pulse 54; Resp 17; Pulse Ox 98% ; me1 17:00 BP 149 / 48; Pulse 54; Resp 18; Pulse Ox 98% ; me1 17:41 BP 152 / 40; Pulse 58; Resp 20; Temp 98.3; Pulse Ox 98% ; me1 15:32 Body Mass Index 25.75 (68.04 kg, 162.56 cm) me1 15:32 Pain Scale: Adult nm1 ED Course: 15:27 Patient arrived in ED. ty 15:27 Leeanna Agarwal, RN is Primary Nurse. me1 15:29 Boni Ulloa MD is Attending Physician. rn 15:35 Triage completed. me1 15:35 Arm band placed on Patient placed in an exam room. me1 15:43 Patient has correct armband on for positive identification. Bed in low position. Call nm1 light in reach. Side rails up X2. Provided Education on: POC. Verbalized understanding.. Client placed on continuous cardiac and pulse oximetry monitoring. NIBP monitoring applied. auto body painter on. Pulse ox on. NIBP on. 15:43 No provider procedures requiring assistance completed. Maintain EMS IV. Dressing me1 intact. Good blood return noted. Site clean \T\ dry. Gauge \T\ site: 20g RFA. Flushed with 10 mL NS. Patient maintains SpO2 saturation greater than 95% on room air. 16:10 Basic Metabolic Panel Sent. me1 16:10 LFT's Sent. me1 16:10 NT PRO-BNP Sent. me1 16:10 Troponin HS Sent. me1 16:10 Initial lab(s) drawn, by me, sent to lab. EKG done, by ED staff, reviewed by Boni me1 Artemio LUA. 16:46 Lemuel Arevalo MD is Hospitalizing Provider. rn 17:07 XRAY Chest (1 view) In Process Unspecified. EDMS Administered Medications: No medications were administered Medication: 15:43 VIS not applicable for this client. me1 Outcome: 16:46 Decision to Hospitalize by Provider. rn 18:14 Patient left the ED. me1 Signatures: Dispatcher [employer] EDMS Boni Ulloa MD MD rn Eddleman, Michelle, RN RN me1 Dipak Carr
[2024-12-20] MEDS ORDERED: MORPHINE 4 MG/ML SYR IV PRN (17:26)
[2024-12-20] MEDS ORDERED: NITROGLYCERIN 0.4 MG/TAB SL PRN (17:26)
--- NOTE | 2024-12-20 17:34 | P.HP ---
Certification for Inpatient Patient admitted to: Observation With expected LOS: <2 Midnights Practitioner: I am a practitioner with admitting privileges, knowledge of patient current condition, hospital course, and medical plan of care. Services: Services provided to patient in accordance with Admission requirements found in Title 42 Section 412.3 of the Code of Federal Regulations Patient History Date of Service: 12/20/24 Reason for admission: Chest pain History of Present Illness: Patient is 79 years of age with a history of dementia admitted with chest pain parasternal apparently there is this started this morning patient is very vague describes that she has had intermittent pain for a long time according to her she does not follow-up with any physicians currently denies any chest pain no shortness of breath Allergies No Known Allergies Allergy (Unverified 09/28/24 12:56) Home Medications: Acetaminophen [Tylenol] 325 mg PO Q4HR PRN 09/28/24 Amlodipine [Norvasc*] 10 mg PO BEDTIME 09/28/24 Carvedilol [Coreg] 12.5 mg PO BID 09/28/24 Cholecalciferol (Vitamin D3) [Dialyvite Vitamin D3 Max] 50,000 unit PO EVERY 7TH DAY 09/28/24 Divalproex Sodium [Depakote Sprinkle] 125 mg PO BID 09/28/24 Hydralazine HCl 50 mg PO Q8HR 09/28/24 Loperamide [Imodium*] 2 mg PO Q8HR PRN 09/28/24 Losartan Potassium 100 mg PO DAILY 09/28/24 Mag Hydrox/Al Hydrox/Simeth [Maalox Maximum Strength Susp] 400 mg PO Q4HR PRN 09/28/24 Mag Hydroxide 8% [Milk Of Magnesia*] 30 ml PO DAILY PRN 09/28/24 Memantine HCl 5 mg PO BID 09/28/24 Mirtazapine 37.5 mg PO BEDTIME 09/28/24 Olanzapine [Zyprexa] 5 mg PO BEDTIME 09/28/24 cloNIDine HCL [Clonidine HCl] 0.1 mg PO Q6HR 09/28/24 Azithromycin Tab [Zithromax*] 250 mg PO ZPAK 5 Days #1 roxanne 10/01/24 Furosemide [Lasix] 10 mg PO DAILY 6 Days #3 tab 10/01/24 Potassium Oral Tab [Klor-Con 10 mEq Tab*] 10 meq PO DAILY 6 Days #6 tab 12/24/24 - Past Medical/Surgical History Diabetic: No -: Alzheimer's -: Major depressive disorder -: Hypertension -: Dementia -: Partial Hysterectomy - Social History Alcohol use: No CD- Drugs: No Caffeine use: Yes Review of Systems 10-point ROS is otherwise unremarkable Physical Examination - Vital Signs Temperature: 98 F Blood Pressure: 160/42 Pulse: 54 Respirations: 12 Pulse Ox (%): 99 - Physical Exam General: Alert, In no apparent distress, Oriented x3 HEENT: Atraumatic Respiratory: Clear to auscultation bilaterally Cardiovascular: No edema, Regular rate/rhythm, Normal S1 S2 Gastrointestinal: Normal bowel sounds, Soft and benign, Non-distended Musculoskeletal: No clubbing, No swelling - Studies Laboratory Data (last 24 hrs) 12/20/24 12/20/24 15:56 15:56 WBC 4.80 Hgb 10.7 L Hct 31.2 L Plt Count 198 Sodium 140 Potassium 3.9 BUN 13 Creatinine 0.90 Glucose 130 H Total Bilirubin 0.2 AST < 10 L ALT < 14 Alkaline Phosphatase 47 Assessment and Plan - Problems (Diagnosis) (1) Chest pain Current Visit: Yes Status: Acute Plan: Patient is 79 years of age admitted with retrosternal chest pain patient has dementia does not recall the exact timing of the pain crabbing this morning or last evening and has had intermittent pain for some time pain is now resolved troponin so far is negative patient has hypertension does not recall even going to see a physician will plan to admit serial troponins EKG anticoagulate aspirin beta-blockers possible discharge a.m. patient is mildly anemic chest x-ray is clear mild cardiomegaly Qualifiers: Chest pain type: unspecified Qualified Code(s): R07.9 - Chest pain, unspecified - Advance Directives Does patient have a Living Will: Yes Does patient have a Durable POA for Healthcare: No
[2024-12-20] MEDS ORDERED: MORPHINE 2 MG/ML SYR IV PRN (17:35)
[2024-12-20] MEDS ORDERED: ENOXAPARIN 80 MG/0.8 ML SQ SCH (17:45)
[2024-12-20] MEDS: METOPROLOL TAR 25 MG TAB PO SCH (18:00)
[2024-12-20] MEDS: ASPIRIN EC 325 MG TABLET PO SCH (18:00)
--- NOTE | 2024-12-20 18:03 | RAD REPORT ---
EXAMINATION: ONE VIEW CHEST XR CLINICAL INDICATION: Female, 79 years old.,CHEST PAIN TECHNIQUE: Frontal chest projection is submitted. Examination is limited by patient positioning and t echnique. COMPARISON: 09/28/2024 FINDINGS: The lungs are well inflated and clear. No pneumothorax or sizable effusion. The heart is again at th e upper limit of normal in size. Mediastinal contours are unremarkable. IMPRESSION: No acute intrathoracic abnormalities.
[2024-12-20 18:47] VITALS: O2SAT 98
[2024-12-21] MEDS: ENOXAPARIN 80 MG/0.8 ML SQ SCH (04:59)
[2024-12-21 05:10] VITALS: BMI 25.7
[2024-12-21 05:19] LABS: Troponin High Sensitivity 35.6 pg/mL (<58.9)
[2024-12-21] MEDS ORDERED: ASPIRIN EC 81 MG TAB PO SCH (09:00)
--- NOTE | 2024-12-21 11:34 | P.DS ---
Admission Date: 12/20/24 Discharge Date: 12/21/24 Disposition: ROUTINE DISCHARGE Discharge Condition: GOOD Reason for Admission: Chest pain - Problems (1) Chest pain Current Visit: Yes Status: Acute Qualifiers: Chest pain type: unspecified Qualified Code(s): R07.9 - Chest pain, unspecified Brief History of Present Illness: Patient is 79 years of age with a history of dementia admitted with chest pain parasternal apparently there is this started this morning patient is very vague describes that she has had intermittent pain for a long time according to her she does not follow-up with any physicians currently denies any chest pain no shortness of breath Hospital Course: Patient is 79 years of age with a history of significant dementia admitted with atypical chest pain chest pain for a long time intermittent came in again complaining of retrosternal chest pain and was admitted for observation EKG was normal sinus bradycardia compatible with the use of beta-helena patient's troponins were also negative at the time of discharge patient was not having any discomfort pressure was elevated patient to be given blood pressure pills prior to discharge resume all her home medications have also added isosorbide patient to follow-up with cardiology apart from mild anemia and labs unremarkable time of discharge patient alert oriented responsive cooperative chest clear cardiovascular system normal patient was chest pain-free will be given her blood pressure medications prior to discharge added isosorbide Vital Signs/Physical Exam: Temp Pulse Resp BP Pulse Ox 98.7 F 57 16 182/71 H 94 12/21/24 04:00 12/21/24 08:12 12/21/24 04:00 12/21/24 08:12 12/21/24 04:00 Laboratory Data at Discharge: WBC 4.80 thou/uL (4.3-10.9) 12/20/24 15:56 Hgb 10.7 g/dL (12.0-15.0) L 12/20/24 15:56 Hct 31.2 % (36.0-45.0) L 12/20/24 15:56 Plt Count 198 thou/uL (152-406) 12/20/24 15:56 Sodium 140 mEq/L (136-145) 12/20/24 15:56 Potassium 3.9 mEq/L (3.5-5.1) 12/20/24 15:56 BUN 13 mg/dL (7-18) 12/20/24 15:56 Creatinine 0.90 mg/dL (0.55-1.02) 12/20/24 15:56 Glucose 130 mg/dL (74-106) H 12/20/24 15:56 Total Bilirubin 0.2 mg/dL (0.2-1.0) 12/20/24 15:56 AST < 10 U/L (15-37) L 12/20/24 15:56 ALT < 14 U/L (13-56) 12/20/24 15:56 Alkaline Phosphatase 47 U/L (45-117) 12/20/24 15:56 Triglycerides 85 mg/dL (<150) 12/21/24 04:22 Cholesterol 174 mg/dL (<200) 12/21/24 04:22 HDL Cholesterol 39 mg/dL (40-60) L 12/21/24 04:22 Cholesterol/HDL Ratio 4.46 12/21/24 04:22 Home Medications: Amlodipine [Norvasc*] 10 mg PO BEDTIME 09/28/24 Carvedilol [Coreg] 25 mg PO BID 09/28/24 Cholecalciferol (Vitamin D3) [Dialyvite Vitamin D3 Max] 50,000 unit PO EVERY 7TH DAY 09/28/24 Divalproex Sodium [Depakote Sprinkle] 125 mg PO BID 09/28/24 Hydralazine HCl 100 mg PO TID 09/28/24 Losartan Potassium 100 mg PO DAILY 09/28/24 Memantine HCl 5 mg PO BID 09/28/24 Mirtazapine 37.5 mg PO BEDTIME 09/28/24 Olanzapine [Zyprexa] 5 mg PO BEDTIME 09/28/24 Potassium Oral Tab [Klor-Con 10 mEq Tab*] 10 meq PO DAILY 6 Days #6 tab 10/01/24 Aspirin [Vazalore] 81 mg PO DAILY 12/20/24 Furosemide [Lasix*] 20 mg PO DAILY 12/20/24 Isosorbide Mononitrate [Isosorbide Mononitrate ER] 30 mg PO DAILY PRN 30 Days #30 tab 12/21/24 New Medications: Isosorbide Mononitrate [Isosorbide Mononitrate ER] 30 mg PO DAILY PRN 30 Days #30 tab PRN Reason: chest pain Physician Discharge Instructions: Please fax isosorbide to pharmacy and f/u with cardiology Diet: Regular Activity: Ad josephine Followup: Ari Aparicio MD [ACTIVE - CAN ADMIT] - Alejandra Caldwell MD [Primary Care Provider] -
[2024-12-21] MEDS: LOSARTAN POTASSIUM 50 MG TABLET PO SCH (11:54)
[2024-12-21] MEDS: carvediloL 25 MG TAB PO SCH (11:54)
[2024-12-21 12:03] VITALS: BP 206/80; TEMP 98.1
[2024-12-21] MEDS ORDERED: carvediloL 25 MG TAB PO SCH (17:00)
[2024-12-21] MEDS ORDERED: AMLODIPINE 10 MG TAB PO SCH (21:00)
[2024-12-22] MEDS ORDERED: LOSARTAN POTASSIUM 50 MG TABLET PO SCH (09:00)
== END 2024-12-21 12:47 | disposition home or self-care (01) ==
LOC: ER 15:23 → ERHOLD 17:26 → 2ND 18:52
PROVIDERS: ADMIT Internal Medicine Sleep Medicine; ATTEND Internal Medicine Sleep Medicine
DX: R07.89 Other chest pain (principal); I10 Essential (primary) hypertension; D64.9 Anemia, unspecified; I51.7 Cardiomegaly; F03.90 Unspecified dementia, unspecified severity, without behavioral disturbance, psychotic disturbance, mood disturbance, and anxiety
CPT/HCPCS: 36415; 71045; 80048; 80061; 80076; 83880; 84484; 85025; 93005; 99284; G0378